=== PATIENT | male | born 1945 | race Caucasian/White ===

== ENCOUNTER → 2016-04-13 | Outpatient (CLI) | payer MEDICARE, OTHER ==
[~2016-04-13] MED LIST: ASPIRIN 81M81 MG/TA2 PO; CEPHALEXIN500 M1 PO; CLOBETASOL0.05% TP; COLACE 100100 MG/CAP PO; FLEXERIL 1010 MG/TAB PO; FLEXERIL10 MG PO; FLOMAX 0.40.4 MG/CAP PO; INDOCIN; LIPITOR 40MG TA40 MG PO; LORTAB 5/500 501 TAB PO; NIZORAL A-D 20200 ML TP; NIZORAL SHAMPO120 M1 TP; NORVASC 10MG10 MG PO; PRILOSEC 20MG20 MG PO; PRINZIDE 12.5 M1 TA1 PO; PROAIR HFA0.09 MG/AC IH; SELSUN 120 ML120 ML TOP; SINEMET 25/101 UDTAB PO; SORIATANE10 MG PO; SORIATANE25 M2 PO; SORIATANE25 MG PO; TEMOVATE60CR TOP; VOLTAREN SR25 MG/TAB PO; ZUN SPOT1% TP; [UNRECOGNIZED DRUG - OTHER]; [UNRECOGNIZED DRUG - OTHER]; [UNRECOGNIZED DRUG - OTHER]; [UNRECOGNIZED DRUG - REMARK]; [UNRECOGNIZED DRUG - REMARK]
== END ==
LOC: COL.PUL 10:48
DX: R06.02 Shortness of breath (principal)

== ENCOUNTER → 2016-04-16 | Outpatient (CLI) | payer MEDICARE, OTHER | LOC: COL.RAD 11:59 | PROVIDERS: Internal Medicine | DX: D48.7 Neoplasm of uncertain behavior of other specified sites (principal); R06.02 Shortness of breath | CPT/HCPCS: Q9967 ==

== ENCOUNTER 2016-04-20 09:15 | Outpatient (RCR) | payer MEDICARE, OTHER ==
[~2016-04-20 09:15] MED LIST changes: -NIZORAL A-D 20200 ML TP; -SORIATANE25 M2 PO
[2016-04-27] MEDS ORDERED: SORIATANE25 M2 PO (08:59)
[2016-04-27] MEDS ORDERED: NIZORAL A-D 20200 ML TP (09:00)
== END 2016-04-20 10:36 | disposition home or self-care (01) ==
LOC: MKS.ESL.PT 09:15
DX: M47.816 Spondylosis without myelopathy or radiculopathy, lumbar region (principal); M62.838 Other muscle spasm
CPT/HCPCS: G0283-GP; G8978-GP; G8979-GP; G8980-GP

== ENCOUNTER → 2016-04-28 | Outpatient (CLI) | payer MEDICARE, OTHER ==
[2016-04-28] VITALS (14 sets, daily range): BP systolic 114–128; BP diastolic 67–81; PULSE 56–70
[~2016-04-28] VITALS: Ht 177.8 cm; Wt 92.7 kg
[~2016-04-28] MED LIST changes: +NIZORAL A-D 20200 ML TP; +SORIATANE25 M2 PO
[2016-04-28 14:14] LABS: INR 1.2 (0.8-3.0); PROTHROMBIN TIME 13.3 SECONDS (9.7-12.8)
== END ==
LOC: COL.RAD 13:25
PROVIDERS: Internal Medicine
DX: K76.89 Other specified diseases of liver (principal)
CPT/HCPCS: J2250; J3010

== ENCOUNTER → 2016-10-06 | Outpatient (CLI) | payer MEDICARE, OTHER, BC | LOC: MHCPAIN 11:32 | DX: G89.29 Other chronic pain (principal); M47.27 Other spondylosis with radiculopathy, lumbosacral region; C34.90 Malignant neoplasm of unspecified part of unspecified bronchus or lung; Z79.82 Long term (current) use of aspirin | CPT/HCPCS: G0463 ==

== ENCOUNTER → 2016-10-14 | Outpatient (CLI) | payer MEDICARE, OTHER | LOC: COL.VAS 08:45 | DX: M71.22 Synovial cyst of popliteal space [Baker], left knee (principal); C34.90 Malignant neoplasm of unspecified part of unspecified bronchus or lung ==

== ENCOUNTER → 2016-10-22 | Outpatient (CLI) | payer MEDICARE, OTHER, BC | LOC: MHCPAIN 08:19 | DX: M47.27 Other spondylosis with radiculopathy, lumbosacral region (principal); M48.06 Spinal stenosis, lumbar region | CPT/HCPCS: J1100; Q9967 ==

== ENCOUNTER 2016-11-07 15:34 | Emergency (ER) | payer MEDICARE, OTHER ==
[~2016-11-07] VITALS: Ht 177.8 cm; Wt 89.5 kg
[2016-11-07 15:38] VITALS: BP 94/55; PULSE 63; TEMP 98.3
== END 2016-11-07 17:30 | disposition home or self-care (01) ==
LOC: COL.ER 15:34
DX: S61.412A Laceration without foreign body of left hand, initial encounter (principal); W32.1XXA Accidental handgun malfunction, initial encounter

== ENCOUNTER → 2016-11-09 | Outpatient (CLI) | payer MEDICARE, OTHER | LOC: MHCPAIN 09:43 | DX: G89.29 Other chronic pain (principal); M47.27 Other spondylosis with radiculopathy, lumbosacral region; M53.3 Sacrococcygeal disorders, not elsewhere classified; G89.3 Neoplasm related pain (acute) (chronic) | CPT/HCPCS: G0463 ==

== ENCOUNTER → 2016-12-08 | Outpatient (CLI) | payer MEDICARE, OTHER ==
[~2016-12-08] MED LIST changes: +KEYTRUDA50 MG; +LEXAPRO20 MG PO; +NEURONTIN300 MG/CAP PO; +OXY IR5 MG PO; +PERCOCET 325 MG1 TA2 PO; +SYNTHROID0.1 MG/TAB PO; +ZORVOLEX18 MG PO
== END ==
LOC: MHCPAIN 11:14
DX: G89.29 Other chronic pain (principal); M47.817 Spondylosis without myelopathy or radiculopathy, lumbosacral region; C34.90 Malignant neoplasm of unspecified part of unspecified bronchus or lung; M79.2 Neuralgia and neuritis, unspecified
CPT/HCPCS: G0463

== ENCOUNTER → 2017-01-11 | Outpatient (CLI) | payer MEDICARE, OTHER, BC | LOC: MHCPAIN 11:19 | DX: G89.29 Other chronic pain (principal); M47.817 Spondylosis without myelopathy or radiculopathy, lumbosacral region; M79.2 Neuralgia and neuritis, unspecified | CPT/HCPCS: G0463 ==

== ENCOUNTER → 2017-01-19 | Outpatient (CLI) | payer MEDICARE, OTHER, BC | LOC: MHCPAIN 12:48 | DX: G89.29 Other chronic pain (principal); M79.2 Neuralgia and neuritis, unspecified; M79.1 Myalgia; M25.569 Pain in unspecified knee | CPT/HCPCS: G0463 ==

== ENCOUNTER → 2017-02-01 | Outpatient (CLI) | payer MEDICARE, OTHER ==
[~2017-02-01] MED LIST changes: +FLONASEALLERGY NS; +VOLTAREN GEL 1%1 TU TP
== END ==
LOC: MHCPAIN 12:39
DX: G89.29 Other chronic pain (principal); M47.817 Spondylosis without myelopathy or radiculopathy, lumbosacral region; M79.2 Neuralgia and neuritis, unspecified
CPT/HCPCS: G0463

== ENCOUNTER → 2017-02-02 | Outpatient (CLI) | payer MEDICARE, OTHER ==
[~2017-02-02] VITALS: Ht 177.8 cm; Wt 87.3 kg
[2017-02-02] VITALS (10 sets, daily range): BP systolic 123–153; BP diastolic 72–90; PULSE 57–73
[2017-02-02 12:01] LABS: INR 1.2 (0.8-3.0); PROTHROMBIN TIME 14.2 SECONDS (9.7-12.8)
== END ==
LOC: COL.RAD 09:23
PROVIDERS: Internal Medicine
DX: Z79.01 Long term (current) use of anticoagulants (principal); C34.11 Malignant neoplasm of upper lobe, right bronchus or lung; R59.0 Localized enlarged lymph nodes
CPT/HCPCS: J2250; J3010

== ENCOUNTER → 2017-03-03 | Outpatient (CLI) | payer MEDICARE, OTHER | LOC: MHCPAIN 12:51 | DX: G89.29 Other chronic pain (principal); M79.2 Neuralgia and neuritis, unspecified; M79.1 Myalgia | CPT/HCPCS: G0463 ==

== ENCOUNTER → 2017-04-05 | Outpatient (CLI) | payer MEDICARE, OTHER, BC | LOC: MHCPAIN 12:52 | DX: G89.29 Other chronic pain (principal); M79.2 Neuralgia and neuritis, unspecified; M79.1 Myalgia | CPT/HCPCS: G0463 ==

== ENCOUNTER → 2017-06-02 | Outpatient (CLI) | payer MEDICARE, OTHER, BC | LOC: MHCPAIN 12:12 | DX: G89.29 Other chronic pain (principal); M79.2 Neuralgia and neuritis, unspecified; M79.1 Myalgia; M25.562 Pain in left knee; M25.561 Pain in right knee | CPT/HCPCS: G0463 ==

== ENCOUNTER → 2017-06-03 | Outpatient (CLI) | payer MEDICARE, OTHER, BC | LOC: MHCPAIN 14:37 | DX: M17.0 Bilateral primary osteoarthritis of knee (principal) | CPT/HCPCS: J1040; Q9967 ==

== ENCOUNTER → 2017-06-30 | Outpatient (CLI) | payer MEDICARE, OTHER, BC | LOC: MHCPAIN 12:05 | DX: G89.29 Other chronic pain (principal); M79.2 Neuralgia and neuritis, unspecified; M79.1 Myalgia; M25.562 Pain in left knee; M25.561 Pain in right knee | CPT/HCPCS: G0463 ==

== ENCOUNTER → 2017-08-03 | Outpatient (CLI) | payer MEDICARE, OTHER, BC | LOC: MHCPAIN 11:12 | DX: G89.29 Other chronic pain (principal); M79.2 Neuralgia and neuritis, unspecified; M79.1 Myalgia; M25.562 Pain in left knee; M25.561 Pain in right knee | CPT/HCPCS: G0463 ==

== ENCOUNTER → 2017-09-01 | Outpatient (CLI) | payer MEDICARE, OTHER, BC | LOC: MHCPAIN 10:58 | DX: G89.29 Other chronic pain (principal); M79.2 Neuralgia and neuritis, unspecified; M79.1 Myalgia; M25.562 Pain in left knee; M25.561 Pain in right knee | CPT/HCPCS: G0463 ==

== ENCOUNTER → 2017-09-29 | Outpatient (CLI) | payer MEDICARE, OTHER, BC | LOC: MHCPAIN 13:01 | DX: G89.29 Other chronic pain (principal); M79.1 Myalgia; M79.2 Neuralgia and neuritis, unspecified; G89.3 Neoplasm related pain (acute) (chronic) | CPT/HCPCS: G0463 ==

== ENCOUNTER → 2017-11-08 | Outpatient (CLI) | payer MEDICARE, OTHER, BC | LOC: MHCPAIN 08:49 | DX: G89.29 Other chronic pain (principal); M47.817 Spondylosis without myelopathy or radiculopathy, lumbosacral region; M54.16 Radiculopathy, lumbar region; M53.3 Sacrococcygeal disorders, not elsewhere classified; G89.3 Neoplasm related pain (acute) (chronic) | CPT/HCPCS: G0463; J0690; J2250; J3010; J7030 ==

== ENCOUNTER → 2017-11-16 | Outpatient (CLI) | payer MEDICARE, OTHER, BC | LOC: MHCPAIN 10:07 | DX: G89.29 Other chronic pain (principal); M79.10 Myalgia, unspecified site; M79.2 Neuralgia and neuritis, unspecified | CPT/HCPCS: G0463 ==

== ENCOUNTER → 2017-11-26 | Outpatient (CLI) | payer MEDICARE, OTHER | LOC: COL.RAD 13:22 | DX: M99.71 Connective tissue and disc stenosis of intervertebral foramina of cervical region (principal); M47.812 Spondylosis without myelopathy or radiculopathy, cervical region ==

== ENCOUNTER → 2017-12-08 | Outpatient (CLI) | payer MEDICARE, OTHER | LOC: MHCPAIN 08:30 | DX: G89.29 Other chronic pain (principal); M79.2 Neuralgia and neuritis, unspecified | CPT/HCPCS: G0463 ==

== ENCOUNTER → 2017-12-13 | Outpatient (CLI) | payer MEDICARE, OTHER | LOC: COL.RAD 11:06 | DX: C34.11 Malignant neoplasm of upper lobe, right bronchus or lung (principal); K86.9 Disease of pancreas, unspecified; R59.0 Localized enlarged lymph nodes; Z90.49 Acquired absence of other specified parts of digestive tract | CPT/HCPCS: Q9967 ==

== ENCOUNTER 2018-01-02 14:55 | Inpatient (IN) | payer MEDICARE, OTHER ==
[~2018-01-02] VITALS: Ht 177.8 cm; Wt 80.9 kg
[2018-01-02 15:43] LABS: BASO % 0.3 % (0.0-2.0); EOS % 0.1 % (0-4.0); GRAN # 6.8 (1.4-6.5); GRAN % 95.5 % (42.2-75.2); HEMOGLOBIN 10.9 g/dl (13.5-18.0); LYMPH # 0.2 (1.2-3.4); LYMPH % 2.8 % (20.0-51.0); MEAN CELL VOLUME 89 fl (80.0-100.0); MEAN CORPUSCULAR HEMOGLOBIN 30 pg (27.0-31.0); MEAN CORPUSCULAR HGB CONC 33 g/dl (33.0-37.0); MEAN PLATELET VOLUME 9.7 fl (7.4-10.4); MONO # 0.1 (0.1-0.6); MONO % 0.7 % (1.7-9.3); PLATELET COUNT 94 K/mm3 (130-400); RED BLOOD COUNT 3.69 M/mm3 (4.20-5.60); REDCELL DISTRIBUTION WIDTH-CV 14.5 % (11.5-14.5)
[2018-01-02 15:53] LABS: ALBUMIN 3.6 gm/dL (3.5-5.0); C-REACTIVE PROTEIN 7.5 mg/dL (0.0-0.9); CALCIUM 8.4 mg/dL (8.4-10.2); CREATININE, serum 0.8 mg/dL (0.66-1.25); POTASSIUM 3.9 mmol/L (3.4-5.0); TOTAL PROTEIN 6.7 gm/dL (6.4-8.2)
[2018-01-02] MEDS ORDERED: PERCOCET 325 MG1 TAB PO (17:01)
[2018-01-02] MEDS ORDERED: COMPAZINE 110 MG/TAB PO (17:02)
[2018-01-02 17:38] LABS: COLLECTION METHOD CLEAN CATCH
[2018-01-02 17:43] LABS: PH 7 (5-8); SQUAMOUS EPITHELIAL None Seen /hpf; URINE APPEARANCE Clear; URINE BACTERIA None Seen /hpf; URINE BILIRUBIN Negative (NEGATIVE); URINE BLOOD Negative (NEGATIVE); URINE COLOR Yellow; URINE GLUCOSE Negative (NEGATIVE); URINE KETONE Negative (NEGATIVE); URINE LEUKOCYTE ESTERASE Negative (NEGATIVE); URINE NITRATE Negative (NEGATIVE); URINE PROTEIN(semi-quant) Negative (NEGATIVE); URINE RBC 0-2 /hpf; URINE UROBILINOGEN >=4.0 mg/dL (NEGATIVE)
[2018-01-02] MEDS ORDERED: REQUIP2 MG PO (19:53)
[2018-01-02] MEDS ORDERED: AMBIEN 10MG10 MG PO (19:54)
[2018-01-02 22:05] VITALS: BP 102/58; PULSE 74; TEMP 98.8
[2018-01-02 23:22] VITALS: BP 114/46; PULSE 70; TEMP 98.3
[2018-01-02 23:25] VITALS: BP 103/51
[2018-01-03] VITALS (14 sets, daily range): BP systolic 71–128; BP diastolic 47–73; PULSE 62–160; TEMP 98.2–100.1
[2018-01-03 06:27] LABS: MEAN CELL VOLUME 90 fl (80.0-100.0); MEAN CORPUSCULAR HGB CONC 33 g/dl (33.0-37.0); MEAN PLATELET VOLUME 9.2 fl (7.4-10.4); PLATELET COUNT 89 K/mm3 (130-400); RED BLOOD COUNT 3.16 M/mm3 (4.20-5.60); REDCELL DISTRIBUTION WIDTH-CV 14.7 % (11.5-14.5)
[2018-01-03 06:31] LABS: HEMATOCRIT 28.3 % (42.0-52.0); HEMOGLOBIN 9.3 g/dl (13.5-18.0); MEAN CORPUSCULAR HEMOGLOBIN 29 pg (27.0-31.0)
[2018-01-03 06:44] LABS: CALCIUM 8.1 mg/dL (8.4-10.2); CREATININE, serum 0.66 mg/dL (0.66-1.25); POTASSIUM 3.5 mmol/L (3.4-5.0)
[2018-01-03 06:57] LABS: BAND 31 % (0-10); LYMPHOCYTE 2 % (20.0-51.0); NEUTROPHILS 67 % (42.0-75.2); PLATELET ESTIMATE DECREASED (NORMAL)
[2018-01-04] VITALS (493 sets, daily range): BP systolic 102–112; BP diastolic 45–67; PULSE 54–78; TEMP 97.5–98.7; O2SAT 89–100
[2018-01-04 06:07] LABS: MEAN CELL VOLUME 90 fl (80.0-100.0); MEAN CORPUSCULAR HGB CONC 33 g/dl (33.0-37.0); MEAN PLATELET VOLUME 9.6 fl (7.4-10.4); PLATELET COUNT 137 K/mm3 (130-400); RED BLOOD COUNT 2.91 M/mm3 (4.20-5.60); REDCELL DISTRIBUTION WIDTH-CV 14.7 % (11.5-14.5)
[2018-01-04 06:11] LABS: HEMATOCRIT 26.3 % (42.0-52.0); HEMOGLOBIN 8.6 g/dl (13.5-18.0); MEAN CORPUSCULAR HEMOGLOBIN 30 pg (27.0-31.0)
[2018-01-04 06:22] LABS: ALBUMIN 2.6 gm/dL (3.5-5.0); BILIRUBIN,TOTAL 0.6 mg/dL (0.0-1.0); CALCIUM 7.4 mg/dL (8.4-10.2); CREATININE, serum 0.72 mg/dL (0.66-1.25); POTASSIUM 3.5 mmol/L (3.4-5.0); TOTAL PROTEIN 5.4 gm/dL (6.4-8.2)
[2018-01-04 06:43] LABS: BAND 8 % (0-10); EOSINOPHIL 1 % (0-4); HYPOCHROMIA 1+; LYMPHOCYTE 7 % (20.0-51.0); NEUTROPHILS 83 % (42.0-75.2); PLATELET ESTIMATE NORMAL (NORMAL)
[2018-01-05 03:54] VITALS: BP 99/58; PULSE 51; TEMP 98.2
[2018-01-05 06:19] LABS: BASO % 0.4 % (0.0-2.0); EOS # 0.1 (0.0-0.7); EOS % 2.2 % (0-4.0); GRAN # 1.6 (1.4-6.5); GRAN % 70.9 % (42.2-75.2); LYMPH # 0.5 (1.2-3.4); LYMPH % 21.7 % (20.0-51.0); MEAN CELL VOLUME 92 fl (80.0-100.0); MEAN CORPUSCULAR HGB CONC 32 g/dl (33.0-37.0); MEAN PLATELET VOLUME 9.6 fl (7.4-10.4); MONO # 0.1 (0.1-0.6); MONO % 4.4 % (1.7-9.3); PLATELET COUNT 134 K/mm3 (130-400); RED BLOOD COUNT 2.74 M/mm3 (4.20-5.60)
[2018-01-05 06:20] LABS: HEMATOCRIT 25.2 % (42.0-52.0); HEMOGLOBIN 8.1 g/dl (13.5-18.0); MEAN CORPUSCULAR HEMOGLOBIN 30 pg (27.0-31.0)
[2018-01-05 06:39] LABS: CALCIUM 7.4 mg/dL (8.4-10.2); CREATININE, serum 0.73 mg/dL (0.66-1.25); MAGNESIUM 1.9 mg/dL (1.6-2.3); POTASSIUM 3.7 mmol/L (3.4-5.0)
[2018-01-05 07:48] VITALS: BP 126/67; PULSE 54; TEMP 98.5
[2018-01-05 12:31] VITALS: BP 100/49; PULSE 51; TEMP 98.5
[2018-01-05 16:24] VITALS: BP 100/52; PULSE 49; TEMP 98.1
[2018-01-05 19:33] VITALS: BP 104/53; PULSE 55; TEMP 99
[2018-01-06 00:13] VITALS: BP 90/44; PULSE 62; TEMP 99.6
[2018-01-06 03:32] VITALS: BP 97/50; PULSE 65; TEMP 98.7
[2018-01-06 07:17] LABS: MEAN CELL VOLUME 91 fl (80.0-100.0); MEAN CORPUSCULAR HGB CONC 33 g/dl (33.0-37.0); MEAN PLATELET VOLUME 9.4 fl (7.4-10.4); PLATELET COUNT 112 K/mm3 (130-400); RED BLOOD COUNT 2.77 M/mm3 (4.20-5.60); REDCELL DISTRIBUTION WIDTH-CV 14.8 % (11.5-14.5)
[2018-01-06 07:20] LABS: HEMATOCRIT 25.2 % (42.0-52.0); HEMOGLOBIN 8.2 g/dl (13.5-18.0); MEAN CORPUSCULAR HEMOGLOBIN 30 pg (27.0-31.0)
[2018-01-06 07:28] LABS: CALCIUM 7.6 mg/dL (8.4-10.2); CREATININE, serum 0.73 mg/dL (0.66-1.25); POTASSIUM 3.5 mmol/L (3.4-5.0)
[2018-01-06 07:33] VITALS: BP 117/56; PULSE 59; TEMP 97.9
[2018-01-06 10:21] LABS: BAND 9 % (0-10); EOSINOPHIL 2 % (0-4); HYPOCHROMIA 1+; LYMPHOCYTE 26 % (20.0-51.0); METAMYELOCYTE 1 % (0-0); NEUTROPHILS 61 % (42.0-75.2); PLATELET ESTIMATE DECREASED (NORMAL)
[2018-01-06 10:22] LABS: ANISOCYTOSIS 1+
[2018-01-06] MEDS ORDERED: BETAPACE 80MG80 MG PO (10:32)
[2018-01-06] MEDS ORDERED: ELIQUIS 5MG PO (10:33)
[2018-01-06 11:36] VITALS: BP 117/63; PULSE 48; TEMP 98.2
[2018-01-10 10:45] LABS: PATHOLOGY DIFF REVIEW OK
== END 2018-01-06 14:43 | disposition home or self-care (01) | DRG 864 ==
LOC: COL.ER 14:55 → MEDICAL 17:23 → ICU 01-03 23:29 → MEDICAL 01-04 08:34 → ICU 01-04 08:35 → MEDICAL 01-04 15:56
PROVIDERS: Emergency Medicine; Hospitalist; Internal Medicine; Physician Assistant
DX: R50.9 Fever, unspecified (principal); C34.81 Malignant neoplasm of overlapping sites of right bronchus and lung; C78.89 Secondary malignant neoplasm of other digestive organs; C78.7 Secondary malignant neoplasm of liver and intrahepatic bile duct; E87.2 Acidosis; R53.1 Weakness; G20 Parkinson's disease; I10 Essential (primary) hypertension; Z87.891 Personal history of nicotine dependence; E86.0 Dehydration; D64.9 Anemia, unspecified; I48.0 Paroxysmal atrial fibrillation
CPT/HCPCS: 99223-AI; 99232-AI; 99233-AI; A4216; G0378; J0692; J1650; J3370; J7030; J7050

== ENCOUNTER → 2018-01-10 | Outpatient (CLI) | payer MEDICARE, OTHER ==
[~2018-01-10] MED LIST changes: +AMBIEN 10MG10 MG PO; +BETAPACE 80MG80 MG PO; +COMPAZINE 110 MG/TAB PO; +ELIQUIS 5MG PO; +PERCOCET 325 MG1 TAB PO; +REQUIP2 MG PO
== END ==
LOC: MHCPAIN 10:00
DX: G89.29 Other chronic pain (principal); M79.2 Neuralgia and neuritis, unspecified
CPT/HCPCS: G0463

== ENCOUNTER → 2018-02-02 | Outpatient (CLI) | payer MEDICARE, OTHER | LOC: MHCPAIN 12:18 | DX: G89.29 Other chronic pain (principal); M79.2 Neuralgia and neuritis, unspecified | CPT/HCPCS: G0463 ==

== ENCOUNTER → 2018-02-18 | Outpatient (CLI) | payer MEDICARE, OTHER | LOC: COL.VAS 10:15 | DX: M79.89 Other specified soft tissue disorders (principal) ==

== ENCOUNTER 2018-03-01 11:29 | Emergency (ER) | payer MEDICARE, OTHER ==
[~2018-03-01] VITALS: Ht 177.8 cm; Wt 84.1 kg
[2018-03-01 11:31] VITALS: BP 184/83; TEMP 97.8
[2018-03-01 12:11] LABS: MEAN CELL VOLUME 98 fl (80.0-100.0); MEAN CORPUSCULAR HGB CONC 32 g/dl (33.0-37.0); MEAN PLATELET VOLUME 9.2 fl (7.4-10.4); PLATELET COUNT 310 K/mm3 (130-400); RED BLOOD COUNT 2.78 M/mm3 (4.20-5.60); REDCELL DISTRIBUTION WIDTH-CV 19.1 % (11.5-14.5)
[2018-03-01 12:12] LABS: HEMATOCRIT 27.2 % (42.0-52.0); HEMOGLOBIN 8.7 g/dl (13.5-18.0); MEAN CORPUSCULAR HEMOGLOBIN 31 pg (27.0-31.0)
[2018-03-01 12:17] LABS: ALANINE AMINOTRANSFERASE 21 U/L (21-72); ALBUMIN 3.3 gm/dL (3.5-5.0); ALKALINE PHOSPHATASE 112 U/L (50-136); ANION GAP 6 mmol/L (7-16); AST,SGOT 24 U/L (15-37); BILIRUBIN,TOTAL 0.5 mg/dL (0.0-1.0); BLOOD UREA NITROGEN 19 mg/dL (9-20); CARBON DIOXIDE 27 mmol/L (22-30); CHLORIDE 104 mmol/L (98-107); CREATININE, serum 0.82 mg/dL (0.66-1.25); GLUCOSE 122 mg/dL (74-106); POTASSIUM 4.2 mmol/L (3.4-5.0); SODIUM 137 mmol/L (137-145); TOTAL PROTEIN 6.2 gm/dL (6.4-8.2)
[2018-03-01 12:30] LABS: TROPONIN-I < 0.012 ng/mL (0.000-0.034)
[2018-03-01 12:34] LABS: BASO % 0.9 % (0.0-2.0); EOS # 0.2 (0.0-0.7); EOS % 5.5 % (0-4.0); GRAN # 3.6 (1.4-6.5); LYMPH # 0.3 (1.2-3.4); LYMPH % 6.4 % (20.0-51.0); MONO # 0.2 (0.1-0.6); MONO % 3.7 % (1.7-9.3)
--- NOTE | 2018-03-01 15:09 | NUR ---
spice room worker met with patient and spouse to assist with home oxygen arrangements. Worker provided oxygen company options and patient chose [facility]. Patient signed choice form and worker gave a referral to [facility]. Home medical will deliver a portable tank to hospital and will set up concentrator at patient's home.
[2018-03-01] MEDS ORDERED: PREDNISONE10 MG PO (16:07)
[2018-03-01] MEDS ORDERED: PREDNISONE20 MG PO (16:42)
[2018-03-01 16:45] VITALS: PULSE 56
== END 2018-03-01 16:45 | disposition home or self-care (01) ==
LOC: COL.ER 11:29
PROVIDERS: Emergency Medicine
DX: R06.02 Shortness of breath (principal); D64.9 Anemia, unspecified; Z79.82 Long term (current) use of aspirin
CPT/HCPCS: J7512; Q9967

== ENCOUNTER → 2018-03-02 | Outpatient (CLI) | payer MEDICARE, OTHER ==
[~2018-03-02] MED LIST changes: +PREDNISONE10 MG PO; +PREDNISONE20 MG PO
== END ==
LOC: MHCPAIN 12:15
DX: G89.29 Other chronic pain (principal); M79.2 Neuralgia and neuritis, unspecified
CPT/HCPCS: G0463

== ENCOUNTER 2018-04-04 12:14 | Inpatient (IN) | payer MEDICARE, OTHER ==
[~2018-04-04] VITALS: Ht 177.8 cm; Wt 76.0 kg
[2018-04-04 12:42] LABS: MEAN CELL VOLUME 101 fl (80.0-100.0); MEAN CORPUSCULAR HGB CONC 31 g/dl (33.0-37.0); MEAN PLATELET VOLUME 9.9 fl (7.4-10.4); PLATELET COUNT 165 K/mm3 (130-400); REDCELL DISTRIBUTION WIDTH-CV 19.9 % (11.5-14.5)
[2018-04-04 12:43] LABS: HEMATOCRIT 29.2 % (42.0-52.0); MEAN CORPUSCULAR HEMOGLOBIN 31 pg (27.0-31.0)
[2018-04-04 12:47] LABS: ARTERIAL BLD GAS O2 SATURATION 95.9 % (92-100); ARTERIAL BLD GAS TCO2 CT 24.5; ARTERIAL BLOOD GAS BASE EXCESS -0.1 (-2-2); ARTERIAL BLOOD GAS HCO3 23.5 meq/L (22-26); ARTERIAL BLOOD GAS PO2 91.9 mmHg (80-100); ARTERIAL BLOOD GAS pH 7.46 (7.35-7.45)
[2018-04-04 12:51] LABS: ALBUMIN 3.4 gm/dL (3.5-5.0); BILIRUBIN,TOTAL 1.6 mg/dL (0.0-1.0); CALCIUM 8.1 mg/dL (8.4-10.2); CREATININE, serum 1.11 mg/dL (0.66-1.25); POTASSIUM 4.6 mmol/L (3.4-5.0); TOTAL PROTEIN 6.4 gm/dL (6.4-8.2)
[2018-04-04 13:02] LABS: ANISOCYTOSIS 1+; EOSINOPHIL 1 % (0-4); LYMPHOCYTE 7 % (20.0-51.0); NEUTROPHILS 76 % (42.0-75.2); PLATELET ESTIMATE NORMAL (NORMAL)
[2018-04-04 13:03] LABS: POLYCHROMASIA 1+
[2018-04-04] MEDS ORDERED: CEPHALEXIN500 M1 PO (14:04)
[2018-04-04] MEDS ORDERED: OXYCONTIN 10MG10 MG PO (14:04)
[2018-04-04] MEDS ORDERED: MYRBETR50MG PO (14:05)
[2018-04-04 15:34] VITALS: BP 172/83; PULSE 65
--- NOTE | 2018-04-04 17:00 | NUR ---
PATIENT AMBULATED TO BATHROOM APPROX 10 FEET AND BECAME SOB ON 4L PER NC. PATIENT A&O BUT IS HAVING LABBORED BREATHING. PATIENT ASSISTED BACK TO BED AND NOTED SATS IN UPPER 60'S-70'S ON 4L PER NC. RT AND NURSING AT BEDSIDE. PATIENT RECOVERED IN A COUPLE MINUTES. PATIENT INSTRUCTED ON USING URINAL AND BEDSIDE COMMODE.
--- NOTE | 2018-04-04 19:49 | NUR ---
PT FOUND STANDING ON SIDE OF BED PEEING IN URINAL AND RR 30. i HAD PT SIT DOWN ON BED AND CHECKED HIS SATS WERE 70% ON 6LHFNC. HAD PT LAY BACK IN BED AND INCREASED O2 TO 10LHFNC. IT TOOK APPROXIMATELY 5 MIN BEFORE SATS CAME UP TO 90% AND RR WAS STILL 24. RN NOTIFIED
--- NOTE | 2018-04-04 19:50 | NUR ---
Shift assessment complete. Pt resting in bed, awake, a&o, cooperative c cares. Pt denies pain, increased SOB or any other c/o. O2 at 6L per high flow NC. Pt very activity intol, discussed c pt that he may stand at bedside to use urinal but must otherwise stay in bed as much as possible and call for any needs. Pt verbalizes understanding. Portacath noted to R chest, patent c good blood return. Tele in place. Pt denies needs at this time. Call light in reach, will monitor.
[2018-04-04 20:33] VITALS: BP 164/72; PULSE 63; TEMP 98.8
[2018-04-04 23:20] VITALS: BP 158/73; PULSE 55; TEMP 98.4
[2018-04-05 03:50] VITALS: BP 164/76; PULSE 58; TEMP 97.5
[2018-04-05 06:08] LABS: MEAN CELL VOLUME 99 fl (80.0-100.0); MEAN CORPUSCULAR HGB CONC 31 g/dl (33.0-37.0); MEAN PLATELET VOLUME 9.9 fl (7.4-10.4); PLATELET COUNT 165 K/mm3 (130-400); RED BLOOD COUNT 2.73 M/mm3 (4.20-5.60); REDCELL DISTRIBUTION WIDTH-CV 19.9 % (11.5-14.5)
[2018-04-05 06:13] LABS: HEMOGLOBIN 8.4 g/dl (13.5-18.0); MEAN CORPUSCULAR HEMOGLOBIN 31 pg (27.0-31.0)
[2018-04-05 06:17] LABS: ALBUMIN 3.1 gm/dL (3.5-5.0); BILIRUBIN,TOTAL 1.2 mg/dL (0.0-1.0); CALCIUM 8.1 mg/dL (8.4-10.2); CREATININE, serum 1.07 mg/dL (0.66-1.25); POTASSIUM 3.9 mmol/L (3.4-5.0); TOTAL PROTEIN 6.1 gm/dL (6.4-8.2)
[2018-04-05 06:39] LABS: ANISOCYTOSIS 1+; EOSINOPHIL 3 % (0-4); LYMPHOCYTE 9 % (20.0-51.0); NEUTROPHILS 76 % (42.0-75.2); PLATELET ESTIMATE NORMAL (NORMAL)
[2018-04-05 08:00] VITALS: BP 166/76; PULSE 52; TEMP 97.6
--- NOTE | 2018-04-05 09:05 | NUR ---
Assessment completed, alert/oriented, vital signs stable/ afebrile, denies pain or discomfort, when asked if his breathing was any better/worse or changed he replied "I dont know", no resp.difficulty noted while at rest, his crackles noted throughout his right lung bryant/ CTA on left, he is on 5-6L. o2 and sats drop quickly with little exertion/ reports the drops with activity are not unsual for him but that he is requring higher O2 flow in general, heart RRR/ slightly paul at times, distal pulses are palapble, no edema noted, IV Lasix given and he is having good UOP, present in the room
--- NOTE | 2018-04-05 11:39 | NUR ---
SW met with patient and family after clinical rounds. Patient lives at home with his . His PCP is Dr Del Valle and he obtains prescriptions from [facility]. Patient uses O2 and a walker at home but does not use any other DME and he does use home health services. Patient's reports patient has a DPOA and will bring copies for the chart. SW does not anticipate any needs upon discharge but will continue to follow.
[2018-04-05 12:00] VITALS: BP 124/57; PULSE 52; TEMP 98.7
--- NOTE | 2018-04-05 12:08 | NUR ---
First visit from the fertilizing machine operator. No needs right now.
[2018-04-05 16:42] VITALS: BP 103/54; PULSE 54; TEMP 97.5
[2018-04-05 19:07] VITALS: BP 121/69; PULSE 53; TEMP 97.9
--- NOTE | 2018-04-05 21:40 | NUR ---
Resting in bed. Assessment complete. Right lower lobe crackles otherwise clear. Heart sounds normal. Alert and orientated. Denies any pain at this time. Pulses strong throughout. Bowels active x4. Voltren gel applied to hands as ordered. Denies any other needs at this time. Call light in reach.
[2018-04-05 21:53] LABS: COLLECTION METHOD CLEAN CATCH
[2018-04-05 22:01] LABS: HYALINE CAST >12 /lpf; MUCOUS Present /lpf; PH 5 (5-8); SQUAMOUS EPITHELIAL None Seen /hpf; URINE APPEARANCE Clear; URINE BACTERIA None Seen /hpf; URINE BILIRUBIN Negative (NEGATIVE); URINE BLOOD 2+ (NEGATIVE); URINE COLOR Yellow; URINE GLUCOSE Negative (NEGATIVE); URINE KETONE Negative (NEGATIVE); URINE LEUKOCYTE ESTERASE Negative (NEGATIVE); URINE NITRATE Negative (NEGATIVE); URINE PROTEIN(semi-quant) Negative (NEGATIVE)
[2018-04-05 23:41] VITALS: BP 142/69; PULSE 53; TEMP 97.7
--- NOTE | 2018-04-06 02:01 | NUR ---
Resting in bed asleep. Call light in reach.
[2018-04-06 03:25] VITALS: BP 120/76; PULSE 55; TEMP 97.6
--- NOTE | 2018-04-06 05:56 | NUR ---
Uneventful night. Slept well. Denied any pain. Denies needs. Call light in reach.
[2018-04-06 07:06] LABS: BASO % 0.5 % (0.0-2.0); EOS # 0.2 (0.0-0.7); GRAN # 4.3 (1.4-6.5); GRAN % 64.5 % (42.2-75.2); LYMPH # 0.8 (1.2-3.4); MEAN CELL VOLUME 100 fl (80.0-100.0); MEAN CORPUSCULAR HGB CONC 30 g/dl (33.0-37.0); MEAN PLATELET VOLUME 9.8 fl (7.4-10.4); MONO # 1.3 (0.1-0.6); MONO % 19.4 % (1.7-9.3); PLATELET COUNT 190 K/mm3 (130-400); RED BLOOD COUNT 2.69 M/mm3 (4.20-5.60); REDCELL DISTRIBUTION WIDTH-CV 19.6 % (11.5-14.5)
[2018-04-06 07:15] LABS: HEMATOCRIT 26.8 % (42.0-52.0); HEMOGLOBIN 8.1 g/dl (13.5-18.0); MEAN CORPUSCULAR HEMOGLOBIN 30 pg (27.0-31.0)
[2018-04-06 07:16] LABS: ALBUMIN 2.9 gm/dL (3.5-5.0); CALCIUM 7.7 mg/dL (8.4-10.2); CREATININE, serum 1.01 mg/dL (0.66-1.25); POTASSIUM 3.5 mmol/L (3.4-5.0); TOTAL PROTEIN 5.7 gm/dL (6.4-8.2)
--- NOTE | 2018-04-06 07:27 | NUR ---
DECREASED TO 4LNC AT THIS TIME PER SPO2
--- NOTE | 2018-04-06 08:02 | NUR ---
Assessment completed, alert/oriented, vital signs stable, reports mild chronic pain / scheduled meds given, reports he had a better night last night and is feeling pretty good this morning, no resp.difficulty noted at rest and RT has bumped his O2 flow down to 4L., his lungs sound better today but still has some fine crackles to bases, continue with IV lasix and still having good UOP, he is sitting up in bed having some coffee and waiting for his to bring breafast, a.m meds given and he denies needs at this time
[2018-04-06 08:24] VITALS: BP 110/72; PULSE 69; TEMP 97.2
[2018-04-06 11:53] VITALS: BP 103/57; PULSE 49; TEMP 98
[2018-04-06 15:53] VITALS: BP 107/48; PULSE 62; TEMP 98.7
[2018-04-06 19:44] VITALS: BP 115/54; PULSE 56; TEMP 97.8
--- NOTE | 2018-04-06 20:30 | NUR ---
Initial shift assessment done-denies pain at this time- denies SOB, o2 at 3L/nc, very pleasant, offered some ice cream as a snack- accepted. Will call for questions/concerns-
[2018-04-07 00:57] VITALS: BP 118/68; PULSE 58; TEMP 98.2
[2018-04-07 04:01] VITALS: BP 113/54; PULSE 68; TEMP 97.5
--- NOTE | 2018-04-07 06:02 | NUR ---
Quiet night- no requests throughout the night-VSS,
[2018-04-07 06:42] LABS: BASO % 0.5 % (0.0-2.0); EOS # 0.2 (0.0-0.7); EOS % 3.6 % (0-4.0); GRAN % 62.7 % (42.2-75.2); LYMPH # 0.8 (1.2-3.4); LYMPH % 13.2 % (20.0-51.0); MEAN CELL VOLUME 100 fl (80.0-100.0); MEAN CORPUSCULAR HGB CONC 30 g/dl (33.0-37.0); MEAN PLATELET VOLUME 9.9 fl (7.4-10.4); MONO # 1.2 (0.1-0.6); MONO % 19.5 % (1.7-9.3); PLATELET COUNT 254 K/mm3 (130-400); REDCELL DISTRIBUTION WIDTH-CV 19.3 % (11.5-14.5)
[2018-04-07 06:48] LABS: HEMOGLOBIN 8.4 g/dl (13.5-18.0); MEAN CORPUSCULAR HEMOGLOBIN 30 pg (27.0-31.0)
[2018-04-07 06:50] LABS: CALCIUM 7.7 mg/dL (8.4-10.2); CREATININE, serum 0.91 mg/dL (0.66-1.25); MAGNESIUM 2.3 mg/dL (1.6-2.3); POTASSIUM 3.6 mmol/L (3.4-5.0)
--- NOTE | 2018-04-07 07:30 | NUR ---
Pt continues to rest in bed, wakes upon entry. He remains on 3L O2 per NC, resp. are even and unlabored. Port to left upper chest is without complications. KELLEE Boyce student assisting with AM cares.
[2018-04-07 08:00] VITALS: BP 117/69; PULSE 58; TEMP 98.2
[2018-04-07] MEDS ORDERED: K-TAB20 PO (09:07)
[2018-04-07] MEDS ORDERED: LASIX 40MG TABL40 MG PO (09:07)
--- NOTE | 2018-04-07 10:23 | NUR ---
SW attended clinical rounds. Patient will be discharging today. SW presented IM to patient. He signed and did not request a copy.
--- NOTE | 2018-04-07 10:56 | NUR ---
Pt was discharged home from hospital. All discharge instructions and paperwork was reviewed with pt and his who expressed understanding and had no questions. Port deassessed by KELLEE Boyce student with assistance from her instructor, Angelica. New prescriptions sent to pharm. Pt was escorted out of facility by staff.
--- NOTE | 2018-04-07 13:13 | NUR ---
Primary nurse was assisted with [phone] patient care by [employer] student Carli Mccarthy and [employer] instructor Angelica Mas RN-BC.
== END 2018-04-07 11:55 | disposition home or self-care (01) | DRG 291 ==
LOC: COL.ER 12:14 → MEDICAL 13:49
PROVIDERS: Family Medicine; Physician Assistant; ADMIT Student in an Organized Health Care Education/Training Program
DX: I50.33 Acute on chronic diastolic (congestive) heart failure (principal); J96.21 Acute and chronic respiratory failure with hypoxia; C34.81 Malignant neoplasm of overlapping sites of right bronchus and lung; C78.7 Secondary malignant neoplasm of liver and intrahepatic bile duct; C78.89 Secondary malignant neoplasm of other digestive organs; L03.115 Cellulitis of right lower limb; G20 Parkinson's disease; Z87.891 Personal history of nicotine dependence; I48.0 Paroxysmal atrial fibrillation; D64.9 Anemia, unspecified; E03.9 Hypothyroidism, unspecified; E78.5 Hyperlipidemia, unspecified; F32.9 Major depressive disorder, single episode, unspecified
CPT/HCPCS: 99223-AI; 99232-AI; 99239; J0696; J1644; J1940; J2543; J7030

== ENCOUNTER → 2018-04-12 | Outpatient (CLI) | payer MEDICARE, OTHER ==
[~2018-04-12] MED LIST changes: +K-TAB20 PO; +LASIX 40MG TABL40 MG PO; +LEXAPRO 10MG10 MG PO; +MYRBETR50MG PO; +NIZORAL CREAM15 GM TP; +OXYCONTIN 10MG10 MG PO
== END ==
LOC: MHCPAIN 12:19
DX: G89.29 Other chronic pain (principal); M79.2 Neuralgia and neuritis, unspecified
CPT/HCPCS: G0463

== ENCOUNTER 2018-04-13 15:52 | Emergency (ER) | payer MEDICARE, OTHER ==
[~2018-04-13] VITALS: Ht 177.8 cm; Wt 79.1 kg
[~2018-04-13 15:52] MED LIST changes: -LEXAPRO 10MG10 MG PO; -NIZORAL CREAM15 GM TP
[2018-04-13 15:56] VITALS: TEMP 97.9
[2018-04-13] MEDS ORDERED: VOLTAREN GEL 1%1 TU TP (16:13)
[2018-04-13] MEDS ORDERED: SINEMET 25/101 UDTAB PO (16:14)
[2018-04-13] MEDS ORDERED: LEXAPRO 10MG10 MG PO (16:15)
[2018-04-13] MEDS ORDERED: NEURONTIN300 MG/CAP PO ×2 (16:16→16:17)
[2018-04-13 16:20] LABS: BASO # 0.1 (0.0-0.2); BASO % 1.4 % (0.0-2.0); EOS # 0.3 (0.0-0.7); EOS % 4.6 % (0-4.0); GRAN # 3.6 (1.4-6.5); GRAN % 50.6 % (42.2-75.2); LYMPH # 1.1 (1.2-3.4); LYMPH % 15.2 % (20.0-51.0); MEAN CELL VOLUME 100 fl (80.0-100.0); MEAN CORPUSCULAR HGB CONC 30 g/dl (33.0-37.0); MEAN PLATELET VOLUME 8.9 fl (7.4-10.4); MONO % 27.8 % (1.7-9.3); PLATELET COUNT 358 K/mm3 (130-400); RED BLOOD COUNT 2.98 M/mm3 (4.20-5.60); REDCELL DISTRIBUTION WIDTH-CV 16.9 % (11.5-14.5)
[2018-04-13] MEDS ORDERED: PERCOCET 325 MG1 TAB PO (16:20)
[2018-04-13 16:21] LABS: HEMATOCRIT 29.8 % (42.0-52.0); HEMOGLOBIN 8.9 g/dl (13.5-18.0); MEAN CORPUSCULAR HEMOGLOBIN 30 pg (27.0-31.0)
[2018-04-13] MEDS ORDERED: NIZORAL CREAM15 GM TP (16:22)
[2018-04-13 16:25] LABS: INR 1.7 (0.8-3.0); PROTHROMBIN TIME 19.3 SECONDS (9.7-12.8)
[2018-04-13 16:34] LABS: ALANINE AMINOTRANSFERASE 8 U/L (21-72); ALBUMIN 3.4 gm/dL (3.5-5.0); ALKALINE PHOSPHATASE 113 U/L (50-136); ANION GAP 6 mmol/L (7-16); AST,SGOT 30 U/L (15-37); BILIRUBIN,TOTAL 0.4 mg/dL (0.0-1.0); BLOOD UREA NITROGEN 22 mg/dL (9-20); CALCIUM 8.2 mg/dL (8.4-10.2); CARBON DIOXIDE 29 mmol/L (22-30); CHLORIDE 101 mmol/L (98-107); CREATININE, serum 1.01 mg/dL (0.66-1.25); GLUCOSE 95 mg/dL (74-106); POTASSIUM 4.6 mmol/L (3.4-5.0); SODIUM 136 mmol/L (137-145); TOTAL PROTEIN 6.5 gm/dL (6.4-8.2)
[2018-04-13 16:53] LABS: TROPONIN-I < 0.012 ng/mL (0.000-0.035)
[2018-04-13 19:35] VITALS: BP 146/75; PULSE 52
== END 2018-04-13 19:55 | disposition home or self-care (01) ==
LOC: COL.ER 15:52
PROVIDERS: Emergency Medicine
DX: R00.1 Bradycardia, unspecified (principal); G45.9 Transient cerebral ischemic attack, unspecified; G20 Parkinson's disease; I48.91 Unspecified atrial fibrillation; Z85.118 Personal history of other malignant neoplasm of bronchus and lung; Z90.49 Acquired absence of other specified parts of digestive tract; Z87.891 Personal history of nicotine dependence; Z79.51 Long term (current) use of inhaled steroids; Z79.82 Long term (current) use of aspirin

== ENCOUNTER 2018-04-22 15:18 | Observation (INO) | payer MEDICARE, OTHER ==
[~2018-04-22] VITALS: Ht 177.8 cm; Wt 77.8 kg
[~2018-04-22 15:18] MED LIST changes: +LEXAPRO 10MG10 MG PO; +NIZORAL CREAM15 GM TP
[2018-04-22 16:43] LABS: BASO % 0.3 % (0.0-2.0); EOS % 0.3 % (0-4.0); GRAN # 9.1 (1.4-6.5); GRAN % 75.9 % (42.2-75.2); LYMPH # 0.7 (1.2-3.4); LYMPH % 5.4 % (20.0-51.0); MEAN CELL VOLUME 97 fl (80.0-100.0); MEAN CORPUSCULAR HGB CONC 30 g/dl (33.0-37.0); MEAN PLATELET VOLUME 9.6 fl (7.4-10.4); MONO # 1.9 (0.1-0.6); MONO % 16.3 % (1.7-9.3); PLATELET COUNT 152 K/mm3 (130-400); RED BLOOD COUNT 3.18 M/mm3 (4.20-5.60); REDCELL DISTRIBUTION WIDTH-CV 17.2 % (11.5-14.5)
[2018-04-22 16:46] LABS: HEMATOCRIT 30.8 % (42.0-52.0); HEMOGLOBIN 9.2 g/dl (13.5-18.0); MEAN CORPUSCULAR HEMOGLOBIN 29 pg (27.0-31.0)
[2018-04-22 16:50] LABS: INR 1.3 (0.8-3.0); PROTHROMBIN TIME 15.3 SECONDS (9.7-12.8)
[2018-04-22 16:54] LABS: ALBUMIN 3.1 gm/dL (3.5-5.0); BILIRUBIN,TOTAL 0.4 mg/dL (0.0-1.0); CALCIUM 8.4 mg/dL (8.4-10.2); CREATININE, serum 0.89 mg/dL (0.66-1.25); POTASSIUM 4.9 mmol/L (3.4-5.0); TOTAL PROTEIN 5.9 gm/dL (6.4-8.2)
[2018-04-22 17:05] LABS: COLLECTION METHOD CLEAN CATCH
[2018-04-22 17:14] LABS: HYALINE CAST >12 /lpf; MUCOUS Present /lpf; PH 7 (5-8); SQUAMOUS EPITHELIAL 0-2 /hpf; URINE APPEARANCE Clear; URINE BACTERIA None Seen /hpf; URINE BILIRUBIN Negative (NEGATIVE); URINE BLOOD 2+ (NEGATIVE); URINE COLOR Yellow; URINE GLUCOSE Negative (NEGATIVE); URINE KETONE Negative (NEGATIVE); URINE LEUKOCYTE ESTERASE Negative (NEGATIVE); URINE NITRATE Negative (NEGATIVE); URINE PROTEIN(semi-quant) Negative (NEGATIVE); URINE UROBILINOGEN Negative (NEGATIVE)
--- NOTE | 2018-04-22 22:47 | NUR ---
PT DID NOT KNOW WHAT MEDICATIONS HE TAKES. THEREFORE, CALLED SULY AND SHE HELPED UPDATE MED CAR[facility].
[2018-04-22 22:52] VITALS: BP 177/88; PULSE 56; TEMP 97.6
[2018-04-22 23:36] VITALS: BP 172/69; PULSE 58; TEMP 97.8
--- NOTE | 2018-04-23 00:49 | NUR ---
TALKED TO SURESH SAXENA IN REFERENCE TO PT'S BP BEING 172/69. SURESH SAXENA ADVISED TO CONTINUE TO MONITOR.
[2018-04-23 03:56] VITALS: BP 182/79; PULSE 55
--- NOTE | 2018-04-23 06:35 | NUR ---
UNEVENTFUL NIGHT FOR PT. PT HAS BEEN A/O X4, WITH NO CONFUSION. PT HAD SLEPT/RESTED WELL WITH NO C/O PAIN OR DISCOMFORT. CALL LIGHT WITHIN REACH AND BED ALARM ON.
[2018-04-23 07:13] LABS: MEAN CELL VOLUME 95 fl (80.0-100.0); MEAN CORPUSCULAR HGB CONC 31 g/dl (33.0-37.0); MEAN PLATELET VOLUME 9.2 fl (7.4-10.4); PLATELET COUNT 114 K/mm3 (130-400); RED BLOOD COUNT 2.93 M/mm3 (4.20-5.60); REDCELL DISTRIBUTION WIDTH-CV 17.2 % (11.5-14.5)
[2018-04-23 07:17] LABS: HEMATOCRIT 27.9 % (42.0-52.0); HEMOGLOBIN 8.5 g/dl (13.5-18.0); MEAN CORPUSCULAR HEMOGLOBIN 29 pg (27.0-31.0)
[2018-04-23 07:18] LABS: CALCIUM 8.3 mg/dL (8.4-10.2); CREATININE, serum 0.86 mg/dL (0.66-1.25); POTASSIUM 3.8 mmol/L (3.4-5.0)
[2018-04-23 08:29] VITALS: BP 168/77; PULSE 52; TEMP 97.3
--- NOTE | 2018-04-23 08:30 | NUR ---
PATIENT ASSESSMENT COMPLETED. HE HAD DISCONNECTED HIS IV AND REPORTS HE DIDN'T KNOW HOW IT HAPPENED IT WAS JUST THAT WAY. HE DENIES ANY PAIN OR DISCOMFORT AT THIS TIME. HE IS ASSISTED UP TO THE BEDSIDE COMMODE FOR A BOWEL MOVEMENT AND THEN ASSISTED TO THE CHAIR FOR EATING HIS BREAKFAST.
[2018-04-23 09:41] LABS: ANISOCYTOSIS 2+; BAND 1 % (0-10); HYPOCHROMIA 1+; LYMPHOCYTE 8 % (20.0-51.0); NEUTROPHILS 74 % (42.0-75.2); PLATELET ESTIMATE NORMAL (NORMAL)
--- NOTE | 2018-04-23 10:32 | NUR ---
Provided spiritual care to the patient.
[2018-04-23 11:39] VITALS: BP 151/70; PULSE 53; TEMP 97.3
--- NOTE | 2018-04-23 13:25 | NUR ---
Plan to return home with and home health care. Assess: BIBIANA met with Jose about patient care and she indicated that they are going to need some home health assist. Patient refuses to go to a skilled facility or any nursing care. reports that they reside locally. Patient has a walker, a chair lift, a bathing chair in the walk-in shower, and a wheel chair. Patient uses 02 and has a cpap but does not use. [facility] [place] [facility] and [facility] for short term RX. Patient has a DPOA. Action: Provider with [employer] home health print out, and bibiana called to find out if any take . [facility] that only home health open on the weekend from list that will take . Provided resources to patients and faxed a referral to [facility] as 's choice. No additional needs identified.
--- NOTE | 2018-04-23 15:02 | NUR ---
Contact Sydni at [phone], they stated [facility] has to be in network with but they are not available to assist until Wednesday. They could get setup with [facility] regardless due to the Medicare coverage.
[2018-04-23 19:44] VITALS: BP 184/69; PULSE 57; TEMP 97.4
--- NOTE | 2018-04-23 20:25 | NUR ---
PT IN BED WITH HOB ELEVATED TO 30 DEGREE ANGLE, DENIES PAIN OR DISCOMFORT. PT A/O X4, FAMILY IN EARLIER TO VISIT. PT COOPERATIVE AND PLEASANT. NO NEEDS AT THIS TIME, CALL LIGHT WITHIN REACH.
[2018-04-23 23:51] VITALS: BP 166/68; PULSE 82
[2018-04-24 04:21] VITALS: BP 166/71; PULSE 63
--- NOTE | 2018-04-24 07:06 | NUR ---
UNEVENTFUL NIGHT FOR PT. PT REFUSED PAIN MEDICATION THAT WAS SCHEDULED AROUND MIDNIGHT. PT SLEPT/RESTING WELL, AND HAS BEEN A/O X4 WITH NO CONFUSION. CALL LIGHT WITHIN REACH.
[2018-04-24 09:57] LABS: MEAN CELL VOLUME 96 fl (80.0-100.0); MEAN CORPUSCULAR HGB CONC 31 g/dl (33.0-37.0); MEAN PLATELET VOLUME 9.5 fl (7.4-10.4); PLATELET COUNT 120 K/mm3 (130-400); RED BLOOD COUNT 2.95 M/mm3 (4.20-5.60); REDCELL DISTRIBUTION WIDTH-CV 17.5 % (11.5-14.5)
[2018-04-24 10:00] LABS: ALBUMIN 2.9 gm/dL (3.5-5.0); BILIRUBIN,TOTAL 0.6 mg/dL (0.0-1.0); CALCIUM 8.3 mg/dL (8.4-10.2); CREATININE, serum 0.82 mg/dL (0.66-1.25); POTASSIUM 3.8 mmol/L (3.4-5.0); TOTAL PROTEIN 5.8 gm/dL (6.4-8.2)
[2018-04-24 10:02] LABS: HEMATOCRIT 28.2 % (42.0-52.0); HEMOGLOBIN 8.6 g/dl (13.5-18.0); MEAN CORPUSCULAR HEMOGLOBIN 29 pg (27.0-31.0)
--- NOTE | 2018-04-24 10:14 | NUR ---
PATIENT ASSESSMENT COMPLETED. HE DOESN'T WANT TO EAT BREAKFAST YET DOES TAKE HIS MORNING MEDICATIONS WITHOUT DIFFICULTY. PHYSICAL THERAPY IN TO SEE PATIENT. HE IS ABLE TO GET TO THE SIDE OF THE BED SITTING WITH STANDBY ASSIST. HE CONTINUES TO BE A CONFUSED WITH DAY OR DATE. HE IS CLEAR WITH CONVERSATION DOES TRY TO CALL , COULDN'T REMEMBER HER NUMBER BUT DOES LEAVE A MESSAGE FOR HER.
[2018-04-24 12:33] VITALS: BP 131/70; PULSE 66; TEMP 97.6
[2018-04-24 12:43] LABS: LYMPHOCYTE 6 % (20.0-51.0); NEUTROPHILS 81 % (42.0-75.2)
[2018-04-24 12:44] LABS: ANISOCYTOSIS 1+; HYPOCHROMIA 2+; OVALOCYTES 1+; PLATELET ESTIMATE NORMAL (NORMAL)
--- NOTE | 2018-04-24 13:08 | NUR ---
SW completed follow-up with family about [facility] upon DC. [facility] stated they can not start care until tomorrow. Notified family. Family reports that they have enough support over night.
[2018-04-24] MEDS ORDERED: SEROQUEL 2525 MG/TAB PO (15:42)
[2018-04-24 16:02] VITALS: BP 126/44; PULSE 54; TEMP 9.5
--- NOTE | 2018-04-24 17:45 | NUR ---
PATIENT DISCHARGE INSTRUCTIONS GIVEN TO PATIENT AND . THEY VERBALIZES UNDERSTANDING AND WILL MAKE SURE ALL APPOINTMENTS GET MADE IF DR. JUAREZ DO NOT CONTACT THEM TOMORROW
--- NOTE | 2018-04-25 09:50 | NUR ---
pastoral worker spoke with Nacho at [facility] and faxed orders. Patient discharged home and will receive skilled home health for penitentiary, physical and occupational therapies.
== END 2018-04-24 18:00 | disposition home or self-care (01) ==
LOC: COL.ER 15:18 → MEDICAL 20:49 → EDBEDREQTM 20:53 → MEDICAL 04-24 18:00
PROVIDERS: Emergency Medicine; Hospitalist; Nurse Practitioner; ADMIT Internal Medicine
DX: R41.82 Altered mental status, unspecified (principal); R29.6 Repeated falls; R53.81 Other malaise; E03.9 Hypothyroidism, unspecified; G20 Parkinson's disease; F02.80 Dementia in other diseases classified elsewhere, unspecified severity, without behavioral disturbance, psychotic disturbance, mood disturbance, and anxiety; I48.0 Paroxysmal atrial fibrillation; D53.9 Nutritional anemia, unspecified; G62.9 Polyneuropathy, unspecified; C34.90 Malignant neoplasm of unspecified part of unspecified bronchus or lung; Z79.82 Long term (current) use of aspirin; C34.91 Malignant neoplasm of unspecified part of right bronchus or lung; C78.7 Secondary malignant neoplasm of liver and intrahepatic bile duct; C78.89 Secondary malignant neoplasm of other digestive organs; Z79.01 Long term (current) use of anticoagulants; Z90.49 Acquired absence of other specified parts of digestive tract; Z90.2 Acquired absence of lung [part of]; Z87.891 Personal history of nicotine dependence
CPT/HCPCS: G0378; J0360; J7030

== ENCOUNTER → 2018-05-02 | Outpatient (CLI) | payer MEDICARE, OTHER ==
[~2018-05-02] MED LIST changes: +SEROQUEL 2525 MG/TAB PO
== END ==
LOC: MHCPAIN 10:06
DX: G89.29 Other chronic pain (principal); M47.817 Spondylosis without myelopathy or radiculopathy, lumbosacral region; M54.16 Radiculopathy, lumbar region; M53.3 Sacrococcygeal disorders, not elsewhere classified; G89.3 Neoplasm related pain (acute) (chronic)
CPT/HCPCS: G0463

== ENCOUNTER 2018-05-15 10:28 | Emergency (ER) | payer MEDICARE, OTHER ==
[~2018-05-15] VITALS: Ht 177.8 cm; Wt 72.7 kg
[2018-05-15 10:57] LABS: MEAN CELL VOLUME 92 fl (80.0-100.0); MEAN CORPUSCULAR HGB CONC 31 g/dl (33.0-37.0); MEAN PLATELET VOLUME 10.1 fl (7.4-10.4); PLATELET COUNT 208 K/mm3 (130-400); RED BLOOD COUNT 3.16 M/mm3 (4.20-5.60); REDCELL DISTRIBUTION WIDTH-CV 18.9 % (11.5-14.5)
[2018-05-15 11:00] LABS: HEMATOCRIT 29.2 % (42.0-52.0); HEMOGLOBIN 9.1 g/dl (13.5-18.0); MEAN CORPUSCULAR HEMOGLOBIN 29 pg (27.0-31.0)
[2018-05-15 11:02] LABS: INR 4.4 (0.8-3.0)
[2018-05-15 11:09] LABS: ALBUMIN 3.5 gm/dL (3.5-5.0); BILIRUBIN,TOTAL 10.2 mg/dL (0.0-1.0); C-REACTIVE PROTEIN 4.7 mg/dL (0.0-0.9); CALCIUM 8.4 mg/dL (8.4-10.2); CREATININE, serum 1.19 (0.66-1.25); TOTAL PROTEIN 7.3 gm/dL (6.4-8.2)
[2018-05-15 11:09] LABS: LACTIC ACID 3.3 mmol/L (0.4-2.0)
[2018-05-15 11:13] LABS: BAND 3 % (0-10); LYMPHOCYTE 2 % (20.0-51.0); NEUTROPHILS 77 % (42.0-75.2)
[2018-05-15 11:14] LABS: ANISOCYTOSIS 2+; PLATELET ESTIMATE NORMAL (NORMAL)
[2018-05-15 12:00] LABS: COLLECTION METHOD CLEAN CATCH
[2018-05-15 12:10] LABS: GRANULAR CAST >12 /lpf; HYALINE CAST >12 /lpf; MUCOUS Present /lpf; PH 5 (5-8); URINE APPEARANCE Cloudy; URINE BACTERIA Rare /hpf; URINE BILIRUBIN Positive (NEGATIVE); URINE BLOOD 2+ (NEGATIVE); URINE COLOR Amber; URINE GLUCOSE Negative (NEGATIVE); URINE KETONE Negative (NEGATIVE); URINE LEUKOCYTE ESTERASE Negative (NEGATIVE); URINE NITRATE Negative (NEGATIVE); URINE PROTEIN(semi-quant) 2+ (NEGATIVE); URINE RBC 20-50 /hpf; URINE UROBILINOGEN >=4.0 mg/dL (NEGATIVE)
[2018-05-15 15:45] VITALS: BP 143/83; PULSE 81; TEMP 97.4
== END 2018-05-15 15:45 | disposition short-term general hospital (02) ==
LOC: COL.ER 10:28
PROVIDERS: Family Medicine
DX: K83.1 Obstruction of bile duct (principal); Z79.82 Long term (current) use of aspirin
CPT/HCPCS: J2270; J2405; J3430; J7030; Q9967